=== PATIENT | male | born 1980 | race African-American/Black ===

== ENCOUNTER 2020-10-11 08:15 | Emergency (ER) | payer OTHER ==
[2020-10-11] MEDS ORDERED: Ketorolac 30 MG/ML SDV IM ONE (08:25)
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
== END 2020-10-11 09:11 | disposition home or self-care (01) ==
LOC: MW.ED 08:15
DX: S16.1XXA Strain of muscle, fascia and tendon at neck level, initial encounter (principal); V49.50XA Passenger injured in collision with unspecified motor vehicles in traffic accident, initial encounter
CPT/HCPCS: 96372; 99283; J1885